=== PATIENT | male | born 1995 | race Two or more races ===

== ENCOUNTER 2018-01-26 00:54 | Emergency (ER) | payer OTHER | END 2018-01-26 02:17 | disposition home or self-care (01) | LOC: FTE 00:54 | DX: L02.811 Cutaneous abscess of head [any part, except face] (principal); F17.210 Nicotine dependence, cigarettes, uncomplicated | CPT/HCPCS: 10060; 99283-25 ==

== ENCOUNTER 2018-01-28 03:07 | Emergency (ER) | payer OTHER | END 2018-01-28 04:25 | disposition home or self-care (01) | LOC: FTE 03:07 | DX: J06.9 Acute upper respiratory infection, unspecified (principal); F17.210 Nicotine dependence, cigarettes, uncomplicated; Z48.01 Encounter for change or removal of surgical wound dressing | CPT/HCPCS: 99283 ==